=== PATIENT | female | born 1970 | race Caucasian/White ===

== ENCOUNTER 2020-02-13 12:34 | Emergency (ER) | payer MEDICAID ==
[~2020-02-13] VITALS: Ht 162.6 cm; Wt 72.6 kg
[2020-02-13 13:18] LABS: ABSOLUTE BASOPHILS 0.1 thou/uL (0.0-0.2); ABSOLUTE EOSINOPHILS 0.1 thou/uL (0.0-0.7); ABSOLUTE LYMPHOCYTES 0.9 thou/uL (0.8-5.3); ABSOLUTE MONOCYTES 0.6 thou/uL (0.0-1.2); BASOPHILS 0.9 %; EOSINOPHILS 0.8 %; HEMATOCRIT 45.7 % (37.0-47.0); HEMOGLOBIN 15.9 gm/dL (12.0-15.0); LYMPHOCYTES 10.6 %; MCH 30.4 pg (26.0-34.0); MCHC 34.9 g/dL (28.0-37.0); MCV 87.1 fL (80.0-100.0); MONOCYTES 7.3 %; MPV 9.4 fl. (7.2-11.1); NUCLEATED RBCS 0 /100WBC; PLATELET COUNT* 227 thou/uL (150-400); POLYS 80.4 %; RBC 5.24 mil/uL (4.20-5.00); RDW-CV 13.1 % (10.5-14.5); WBC 8.7 thou/uL (4.0-11.0)
[2020-02-13 13:31] LABS: CALCIUM 9.1 mg/dL (8.5-10.1); CREATININE 1.5 mg/dL (0.6-1.3); POTASSIUM 3.6 mmol/L (3.5-5.1)
[2020-02-13 13:32] LABS: ALBUMIN 4.2 g/dL (3.4-5.0); TOTAL BILIRUBIN 0.7 mg/dL (<0.1-1.0); TOTAL PROTEIN 7.4 g/dL (6.4-8.2)
[2020-02-13 13:38] LABS: URINE BILIRUBIN NEGATIVE (Negative); URINE BLOOD TRACE (Negative); URINE CLARITY CLEAR; URINE COLOR YELLOW; URINE GLUCOSE-RANDOM NEGATIVE (Negative); URINE KETONES 1+ (Negative); URINE LEUKOCYTES-REFLEX NEGATIVE (Negative); URINE NITRITE-REFLEX NEGATIVE (Negative); URINE PROTEIN 1+ (Negative); URINE SPECIFIC GRAVITY >= 1.030 (1.005-1.030); URINE UROBILINOGEN 0.2 E.U./dl (0.2-1.0)
[2020-02-13 13:41] LABS: ACETAMINOPHEN < 2 ug/mL (10-30); ALCOHOL < 10 mg/dL (<10); SALICYLATE < 2.8 mg/dL (2.8-20.0)
[2020-02-13 13:46] LABS: AMP/METHAMP Negative (Negative); BARBITURATES Negative (Negative); BENZODIAZEPINES Negative (Negative); COCAINE Negative (Negative); METHADONE Negative (Negative); OPIATES Negative (Negative); PCP Negative (Negative); THC Negative (Negative)
[2020-02-14] MEDS ORDERED: BENZTROPINE MES1 MG PO (11:02)
[2020-02-14] MEDS ORDERED: ABILIFY10 MG PO (11:02)
[2020-02-14] MEDS ORDERED: MONTELUKAST SODI4 M1 PO (11:02)
[2020-02-15 09:55] VITALS: BP 114/67
== END 2020-02-15 09:55 ==
LOC: M.ERS 12:34
PROVIDERS: Emergency Medicine Emergency Medical Services
DX: F20.9 Schizophrenia, unspecified (principal); Z20.828 Contact with and (suspected) exposure to other viral communicable diseases

== ENCOUNTER 2020-04-06 13:58 | Emergency (ER) | payer MEDICAID ==
[~2020-04-06] VITALS: Ht 162.6 cm; Wt 82.6 kg
[~2020-04-06 13:58] MED LIST: ABILIFY10 MG PO; BENZTROPINE MES1 MG PO; MONTELUKAST SODI4 M1 PO
[2020-04-06 14:44] LABS: ABSOLUTE BASOPHILS 0.1 thou/uL (0.0-0.2); ABSOLUTE EOSINOPHILS 0.2 thou/uL (0.0-0.7); ABSOLUTE LYMPHOCYTES 1.8 thou/uL (0.8-5.3); ABSOLUTE MONOCYTES 0.7 thou/uL (0.0-1.2); ABSOLUTE NEUTROPHILS 6.7 thou/uL (1.6-8.1); EOSINOPHILS 2.1 %; HEMATOCRIT 42.9 % (37.0-47.0); HEMOGLOBIN 14.4 gm/dL (12.0-15.0); LYMPHOCYTES 19.4 %; MCH 29.4 pg (26.0-34.0); MCHC 33.6 g/dL (28.0-37.0); MCV 87.4 fL (80.0-100.0); MONOCYTES 7.4 %; MPV 8.7 fl. (7.2-11.1); NUCLEATED RBCS 0 /100WBC; PLATELET COUNT* 284 thou/uL (150-400); POLYS 70.1 %; RDW-CV 13.1 % (10.5-14.5); WBC 9.5 thou/uL (4.0-11.0)
[2020-04-06 14:46] LABS: URINE BILIRUBIN NEGATIVE (Negative); URINE BLOOD NEGATIVE (Negative); URINE CLARITY CLOUDY; URINE COLOR YELLOW; URINE GLUCOSE-RANDOM NEGATIVE (Negative); URINE KETONES NEGATIVE (Negative); URINE NITRITE-REFLEX NEGATIVE (Negative); URINE PROTEIN NEGATIVE (Negative); URINE UROBILINOGEN 0.2 E.U./dl (0.2-1.0)
[2020-04-06 14:49] LABS: URINE LEUKOCYTES-REFLEX 3+ (Negative)
[2020-04-06 14:51] LABS: AMP/METHAMP Negative (Negative); BARBITURATES Negative (Negative); BENZODIAZEPINES Negative (Negative); COCAINE Negative (Negative); METHADONE Negative (Negative); OPIATES Negative (Negative); PCP Negative (Negative); THC Negative (Negative)
[2020-04-06 14:54] LABS: BACTERIA-REFLEX >30 Many /HPF (None Seen); SQUAMOUS >10 Many /LPF (0-3)
[2020-04-06 14:55] LABS: CALCIUM 8.9 mg/dL (8.5-10.1); CREATININE 0.9 mg/dL (0.6-1.3); POTASSIUM 3.3 mmol/L (3.5-5.1)
[2020-04-06 14:55] LABS: CASTS None Seen /LPF (None Seen); CRYSTALS None Seen /LPF (None Seen); MUCUS None Seen strn/LPF (None Seen); URINE RBC 0-2 Rare /HPF (0-2)
[2020-04-06 15:00] LABS: ACETAMINOPHEN < 2 ug/mL (10-30); ALCOHOL < 10 mg/dL (<10); SALICYLATE < 2.8 mg/dL (2.8-20.0); TOTAL BILIRUBIN 0.3 mg/dL (<0.1-1.0); TOTAL PROTEIN 7.5 g/dL (6.4-8.2)
[2020-04-11 13:25] VITALS: BP 131/80
== END 2020-04-11 13:25 ==
LOC: M.ERS 13:58
PROVIDERS: Emergency Medicine Emergency Medical Services
DX: F29 Unspecified psychosis not due to a substance or known physiological condition (principal); Z20.828 Contact with and (suspected) exposure to other viral communicable diseases; Z88.8 Allergy status to other drugs, medicaments and biological substances

== ENCOUNTER 2020-05-02 08:09 | Emergency (ER) | payer MEDICAID ==
[~2020-05-02] VITALS: Ht 165.1 cm; Wt 72.6 kg
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
[2020-05-02] MEDS ORDERED: RESTORIL30 MG PO (08:19)
[2020-05-02 08:22] VITALS: BP 146/91
== END 2020-05-02 08:34 | disposition home or self-care (01) ==
LOC: M.ERS 08:09
DX: O99.343 Other mental disorders complicating pregnancy, third trimester (principal); F29 Unspecified psychosis not due to a substance or known physiological condition; F31.9 Bipolar disorder, unspecified; Z3A.36 36 weeks gestation of pregnancy; Z88.5 Allergy status to narcotic agent

== ENCOUNTER 2020-05-05 22:11 | Emergency (ER) | payer MEDICAID ==
[~2020-05-05] VITALS: Ht 162.6 cm; Wt 77.1 kg
[~2020-05-05 22:11] MED LIST changes: +RESTORIL30 MG PO
[2020-05-05] MEDS ORDERED: OLANZAPINE15 M1 PO (22:24)
[2020-05-05 23:02] LABS: URINE BILIRUBIN NEGATIVE (Negative); URINE BLOOD NEGATIVE (Negative); URINE COLOR YELLOW; URINE GLUCOSE-RANDOM NEGATIVE (Negative); URINE KETONES NEGATIVE (Negative); URINE LEUKOCYTES 3+ (Negative); URINE NITRITE NEGATIVE (Negative); URINE PROTEIN NEGATIVE (Negative); URINE UROBILINOGEN 0.2 E.U./dl (0.2-1.0)
[2020-05-05 23:04] LABS: URINE CLARITY SL CLOUDY
[2020-05-05 23:06] LABS: HEMATOCRIT 43.6 % (37.0-47.0); HEMOGLOBIN 14.5 gm/dL (12.0-15.0); MCH 29.1 pg (26.0-34.0); MCHC 33.3 g/dL (28.0-37.0); MCV 87.4 fL (80.0-100.0); MPV 8.3 fl. (7.2-11.1); RBC 4.99 mil/uL (4.20-5.00); RDW-CV 13.4 % (10.5-14.5); WBC 9.1 thou/uL (4.0-11.0)
[2020-05-05 23:10] LABS: AMP/METHAMP Negative (Negative); BARBITURATES Negative (Negative); BENZODIAZEPINES Negative (Negative); COCAINE Negative (Negative); METHADONE Negative (Negative); OPIATES Negative (Negative); PCP Negative (Negative); THC Negative (Negative)
[2020-05-05 23:14] LABS: CALCIUM 8.4 mg/dL (8.5-10.1); CREATININE 0.8 mg/dL (0.6-1.3); POTASSIUM 3.9 mmol/L (3.5-5.1)
[2020-05-05 23:19] LABS: ALBUMIN 3.7 g/dL (3.4-5.0); TOTAL BILIRUBIN 0.4 mg/dL (<0.1-1.0); TOTAL PROTEIN 7.3 g/dL (6.4-8.2)
[2020-05-05 23:25] LABS: BACTERIA >30 Many /HPF (None Seen); CASTS None Seen /LPF (None Seen); CRYSTALS None Seen /LPF (None Seen); MUCUS >6 Heavy strn/LPF (None Seen); SQUAMOUS >10 Many /LPF (0-3); TRANSITIONAL EPITHEL CELL 0-3 Few /LPF (None Seen); URINE RBC 3-10 Few /HPF (0-2); URINE WBC >25 Many /HPF (0-5); WBC CLUMPS Moderate (None Seen)
[2020-05-05 23:51] LABS: ALCOHOL < 10 mg/dL (<10); SALICYLATE < 2.8 mg/dL (2.8-20.0)
[2020-05-05 23:52] LABS: ACETAMINOPHEN < 2 ug/mL (10-30)
[2020-05-06] MEDS ORDERED: ZYPREXA20 MG PO (03:07)
[2020-05-06] MEDS ORDERED: TRAZODONE HCL100 MG PO (03:07)
[2020-05-06] MEDS ORDERED: BENZTROPINE MES1 MG PO (03:07)
[2020-05-06 04:25] VITALS: BP 123/74
== END 2020-05-06 04:26 | disposition home or self-care (01) ==
LOC: M.ERS 22:11
PROVIDERS: Personal Emergency Response Attendant
DX: F23 Brief psychotic disorder (principal); Z88.8 Allergy status to other drugs, medicaments and biological substances; Z79.899 Other long term (current) drug therapy

== ENCOUNTER 2020-05-07 08:34 | Emergency (ER) | payer MEDICAID ==
[~2020-05-07] VITALS: Ht 162.6 cm; Wt 77.1 kg
[~2020-05-07 08:34] MED LIST changes: +OLANZAPINE15 M1 PO; +TRAZODONE HCL100 MG PO; +ZYPREXA20 MG PO
[2020-05-07 09:54] LABS: ABSOLUTE BASOPHILS 0.1 thou/uL (0.0-0.2); ABSOLUTE EOSINOPHILS 0.1 thou/uL (0.0-0.7); ABSOLUTE LYMPHOCYTES 1.8 thou/uL (0.8-5.3); ABSOLUTE MONOCYTES 0.6 thou/uL (0.0-1.2); ABSOLUTE NEUTROPHILS 6.4 thou/uL (1.6-8.1); EOSINOPHILS 0.8 %; HEMATOCRIT 43.6 % (37.0-47.0); HEMOGLOBIN 14.9 gm/dL (12.0-15.0); LYMPHOCYTES 20.6 %; MCH 29.8 pg (26.0-34.0); MCHC 34.1 g/dL (28.0-37.0); MCV 87.3 fL (80.0-100.0); MONOCYTES 6.5 %; MPV 8.4 fl. (7.2-11.1); NUCLEATED RBCS 0 /100WBC; PLATELET COUNT* 286 thou/uL (150-400); POLYS 71.1 %; RBC 4.99 mil/uL (4.20-5.00); RDW-CV 13.3 % (10.5-14.5); WBC 8.9 thou/uL (4.0-11.0)
[2020-05-07 10:03] LABS: CALCIUM 8.6 mg/dL (8.5-10.1); CREATININE 0.8 mg/dL (0.6-1.3); POTASSIUM 4.1 mmol/L (3.5-5.1)
[2020-05-07 10:07] LABS: ALBUMIN 3.9 g/dL (3.4-5.0); TOTAL BILIRUBIN 0.5 mg/dL (<0.1-1.0); TOTAL PROTEIN 7.7 g/dL (6.4-8.2)
[2020-05-07 10:16] LABS: URINE BILIRUBIN NEGATIVE (Negative); URINE BLOOD NEGATIVE (Negative); URINE CLARITY CLEAR; URINE COLOR YELLOW; URINE GLUCOSE-RANDOM NEGATIVE (Negative); URINE KETONES NEGATIVE (Negative); URINE LEUKOCYTES-REFLEX NEGATIVE (Negative); URINE NITRITE-REFLEX NEGATIVE (Negative); URINE PROTEIN NEGATIVE (Negative); URINE SPECIFIC GRAVITY >= 1.030 (1.005-1.030); URINE UROBILINOGEN 0.2 E.U./dl (0.2-1.0)
[2020-05-07 10:18] LABS: SALICYLATE < 2.8 mg/dL (2.8-20.0)
[2020-05-07 10:19] LABS: ACETAMINOPHEN < 2 ug/mL (10-30); ALCOHOL < 10 mg/dL (<10)
[2020-05-07 10:25] LABS: AMP/METHAMP Negative (Negative); BARBITURATES Negative (Negative); BENZODIAZEPINES Negative (Negative); COCAINE Negative (Negative); METHADONE Negative (Negative); OPIATES Negative (Negative); PCP Negative (Negative); THC Negative (Negative)
[2020-05-07 18:47] VITALS: BP 127/75
== END 2020-05-07 18:47 ==
LOC: M.ERS 08:34
PROVIDERS: Family Medicine
DX: F29 Unspecified psychosis not due to a substance or known physiological condition (principal); Z20.828 Contact with and (suspected) exposure to other viral communicable diseases; F20.9 Schizophrenia, unspecified; Z88.8 Allergy status to other drugs, medicaments and biological substances; Z79.899 Other long term (current) drug therapy

== ENCOUNTER 2021-03-15 23:01 | Emergency (ER) | payer MEDICAID ==
[~2021-03-15] VITALS: Ht 162.6 cm; Wt 81.7 kg
[2021-03-15] MEDS ORDERED: VENTOLIN HFA 1818 GM INH (23:25)
[2021-03-15] MEDS ORDERED: DEPAKOTE ER250 MG PO (23:25)
[2021-03-15] MEDS ORDERED: SYMBICORT160 MCG/4. INH (23:28)
[2021-03-16 00:02] LABS: URINE BILIRUBIN NEGATIVE (Negative); URINE BLOOD TRACE (Negative); URINE CLARITY CLEAR; URINE COLOR YELLOW; URINE GLUCOSE-RANDOM NEGATIVE (Negative); URINE KETONES TRACE (Negative); URINE LEUKOCYTES-REFLEX NEGATIVE (Negative); URINE NITRITE-REFLEX NEGATIVE (Negative); URINE PROTEIN NEGATIVE (Negative); URINE SPECIFIC GRAVITY >= 1.030 (1.005-1.030); URINE UROBILINOGEN 0.2 E.U./dl (0.2-1.0)
[2021-03-16 00:09] LABS: AMP/METHAMP Negative (Negative); BARBITURATES Negative (Negative); BENZODIAZEPINES Negative (Negative); COCAINE Negative (Negative); METHADONE Negative (Negative); OPIATES Negative (Negative); PCP Negative (Negative); THC Negative (Negative)
[2021-03-16 00:11] LABS: HEMATOCRIT 41.2 % (37.0-47.0); HEMOGLOBIN 13.9 gm/dL (12.0-15.0); MCH 30.3 pg (26.0-34.0); MCHC 33.6 g/dL (28.0-37.0); MCV 90.1 fL (80.0-100.0); MPV 8.6 fl. (7.2-11.1); RBC 4.58 mil/uL (4.20-5.00); RDW-CV 14.3 % (10.5-14.5); WBC 9.6 thou/uL (4.0-11.0)
[2021-03-16 00:18] LABS: CALCIUM 8.8 mg/dL (8.5-10.1); CREATININE 1.3 mg/dL (0.6-1.3); POTASSIUM 3.9 mmol/L (3.5-5.1)
[2021-03-16 00:23] LABS: ALBUMIN 3.8 g/dL (3.4-5.0); TOTAL BILIRUBIN 0.5 mg/dL (<0.1-1.0); TOTAL PROTEIN 7.2 g/dL (6.4-8.2)
== END 2021-03-16 00:45 | disposition home or self-care (01) ==
LOC: M.ERS 23:01
PROVIDERS: Personal Emergency Response Attendant
DX: F23 Brief psychotic disorder (principal); Z79.899 Other long term (current) drug therapy; Z88.9 Allergy status to unspecified drugs, medicaments and biological substances

== ENCOUNTER 2021-03-21 20:03 | Emergency (ER) | payer MEDICAID ==
[~2021-03-21] VITALS: Ht 167.6 cm; Wt 81.7 kg
[~2021-03-21 20:03] MED LIST changes: +DEPAKOTE ER250 MG PO; +SYMBICORT160 MCG/4. INH; +VENTOLIN HFA 1818 GM INH
[2021-03-21 20:57] LABS: URINE BILIRUBIN NEGATIVE (Negative); URINE BLOOD TRACE (Negative); URINE CLARITY CLEAR; URINE COLOR YELLOW; URINE GLUCOSE-RANDOM NEGATIVE (Negative); URINE KETONES 1+ (Negative); URINE LEUKOCYTES NEGATIVE (Negative); URINE NITRITE NEGATIVE (Negative); URINE PROTEIN TRACE (Negative); URINE SPECIFIC GRAVITY 1.025 (1.005-1.030); URINE UROBILINOGEN 0.2 E.U./dl (0.2-1.0)
[2021-03-21 21:06] LABS: AMP/METHAMP Negative (Negative); BARBITURATES Negative (Negative); BENZODIAZEPINES Negative (Negative); COCAINE Negative (Negative); METHADONE Negative (Negative); OPIATES Negative (Negative); PCP Negative (Negative); THC Negative (Negative)
== END 2021-03-21 21:00 | disposition left against medical advice (07) ==
LOC: M.ERS 20:03
PROVIDERS: Personal Emergency Response Attendant
DX: F23 Brief psychotic disorder (principal); G54.7 Phantom limb syndrome without pain; Z88.9 Allergy status to unspecified drugs, medicaments and biological substances